=== PATIENT | male | born 1940 | race Caucasian/White ===

== ENCOUNTER 2016-12-13 11:22 | Inpatient (IN) | payer MEDICARE, OTHER, MEDICAID ==
[~2016-12-13] VITALS: Ht 187.9 cm; Wt 99.1 kg
[~2016-12-13 11:22] MED LIST: ACCOLATE10 MG PO; ACIPHEX20 MG PO; ANTIVERT/2525 M1 PO; ATIVAN IM; ATIVAN1 MG PO; CARAFATE1 G1 PO; CEFTIN250 MG; CIPRO500 MG PO; CIPROFLOXACIN500 MG PO; DARVOCET N 1001 TAB PO; EXELON13.3 MG/21 TD; FLOMAX0.4 MG PO; GEODON20 MG IM; KLOR-CON 1010 ME1 PO; KLOR-CON M1010 ME1 PO; LASIX20 MG PO; LASIX40 MG PO; LIPITOR20 MG PO; LOTRISONE 0.05%1 CRE TP; MICONAZOLE NITRATE 2% T; MOBIC7.5 MG PO; MYCOSTATIN POWD15 GM PO; MYLICON, MYLANT80 MG PO; NAMENDA-21 PO; PREVACID SOLUTA30 MG PO; PREVACID30 M1 PO; PRILOSEC20 M1 PO; PYRIDIUM200 MG PO; REGLAN10 MG PO; REMERON15 M2 PO; SELEGILINE HCL5 M1 PO; SEROQUEL50 MG PO; SERTRALINE HYDR25 MG PO; SILVADENE1% TP; SINEMET 25-1001 TA1 PO; SINEMET 25-2501 TA1 PO; SINGULAIR10 MG PO; STOOL SOFTENER100 M1 PO; STOOL SOFTENER100 M3 PO; Synthroid,Levo25 MCG PO; ULTRAM50 MG PO; WATER IM; ZITHROMAX500 MG PO; ZOCOR40 MG PO; ZOCOR80 MG PO; [UNRECOGNIZED DRUG - OTHER] PO
[2016-12-13 11:25] VITALS: BP 104/56
[2016-12-13] MEDS ORDERED: PREPARATION H 81 SUP R (12:15)
[2016-12-13] MEDS ORDERED: KLOR-CON 1010 ME1 PO (12:17)
[2016-12-13 12:18] LABS: BILIRUBIN NEGATIVE (NEGATIVE); BLOOD 3+ (NEGATIVE); CLARITY SL CLOUDY (CLEAR); COLOR YELLOW (YELLOW); GLUCOSE NEGATIVE (NEGATIVE); KETONE NEGATIVE (NEGATIVE); LEUKO ESTERASE NEGATIVE (NEGATIVE); NITRITE NEGATIVE (NEGATIVE); PH 5.5 (5.0-9.0); PROTEIN NEGATIVE (NEGATIVE); SPECIFIC GRAVITY 1.015 (1.005-1.030)
[2016-12-13] MEDS ORDERED: NAMENDA-28 PO (12:18)
[2016-12-13] MEDS ORDERED: VITAMIN D32000 UNIT PO (12:19)
[2016-12-13] MEDS ORDERED: LAC CREAM12% T (12:26)
[2016-12-13] MEDS ORDERED: [UNRECOGNIZED DRUG - OTHER] T (12:27)
[2016-12-13 12:28] LABS: EPITHELIAL CELLS 0-2; RBC 31-40 rbc/hpf (0-2); URINE REFLEX COMMENT YES (NO)
[2016-12-13 12:33] LABS: ALBUMIN 2.7 gm/dl (3.1-4.5); ALKALINE PHOSPHATASE 341 U/L (45-117); BILIRUBIN, TOTAL 0.4 mg/dl (0.2-1.0); BUN 20 mg/dl (7-24); CARBON DIOXIDE 30 mmol/L (21-32); CHLORIDE 100 mmol/L (98-107); EST GLOM FILT AFRICAN AMERICAN > 60 ml/min; GLUCOSE 92 mg/dL (65-99); POTASSIUM 4.1 mmol/L (3.5-5.1); SGOT/AST 78 IU/L (3-35); SGPT/ALT 12 U/L (12-78); SODIUM 140 mmol/L (136-145); TOTAL PROTEIN 7.1 gm/dL (6.4-8.2)
[2016-12-13 12:37] LABS: BASO % 0.3 % (0.0-1.0); EOS # 0.2 10*3/uL (0.0-0.4); EOS % 2.4 % (1.0-4.0); HEMATOCRIT 37.7 % (42.0-52.0); HEMOGLOBIN 11.6 g/dl (14.0-18.0); LYMPH # 0.6 10*3/uL (1.3-4.4); MEAN CELL VOLUME 78.1 fl (80.0-94.0); MEAN CORPUSCULAR HGB CONC 30.8 g/dl (33.0-37.0); MEAN PLATELET VOLUME 10.3 fl (9.6-12.3); MONO # 0.9 10*3/uL (0.1-1.0); MONO % 9.5 % (3.0-9.0); NEUT # 7.6 10*3/uL (2.3-7.9); NEUT % 81.4 % (47.0-73.0); PLATELET COUNT AUTOMATED 365 10*3/uL (130-400); RED BLOOD COUNT 4.83 10*6/uL (4.50-5.90); RED CELL DISTRI WIDTH 15.9 % (0-14.5); WHITE BLOOD COUNT 9.4 10*3/uL (4.8-10.8)
[2016-12-13 12:57] VITALS: BP 96/58
[2016-12-13 14:52] VITALS: BP 113/59
[2016-12-13 15:01] VITALS: BP 105/61
[2016-12-13 19:23] VITALS: BP 114/63
[2016-12-13] MEDS ORDERED: REMERON15 M2 PO (19:55)
[2016-12-14] VITALS: BP 117/59
[2016-12-14 08:00] VITALS: BP 115/54
[2016-12-14 12:00] VITALS: BP 126/54
[2016-12-14 16:00] VITALS: BP 99/60
[2016-12-14 20:00] VITALS: BP 100/60
[2016-12-15] VITALS: BP 108/56
[2016-12-15 06:08] LABS: BASO % 0.4 % (0.0-1.0); EOS # 0.4 10*3/uL (0.0-0.4); EOS % 3.4 % (1.0-4.0); HEMATOCRIT 33.8 % (42.0-52.0); HEMOGLOBIN 10.4 g/dl (14.0-18.0); LYMPH # 0.6 10*3/uL (1.3-4.4); LYMPH % 5.3 % (27.0-41.0); MEAN CELL VOLUME 78.1 fl (80.0-94.0); MEAN CORPUSCULAR HGB CONC 30.8 g/dl (33.0-37.0); MEAN PLATELET VOLUME 10.3 fl (9.6-12.3); NEUT # 8.8 10*3/uL (2.3-7.9); NEUT % 81.5 % (47.0-73.0); PLATELET COUNT AUTOMATED 319 10*3/uL (130-400); RED BLOOD COUNT 4.33 10*6/uL (4.50-5.90); RED CELL DISTRI WIDTH 15.9 % (0-14.5); WHITE BLOOD COUNT 10.7 10*3/uL (4.8-10.8)
[2016-12-15 06:38] LABS: BUN 11 mg/dl (7-24); CARBON DIOXIDE 30 mmol/L (21-32); CHLORIDE 104 mmol/L (98-107); EST GLOM FILT AFRICAN AMERICAN > 60 ml/min; GLUCOSE 71 mg/dL (65-99); POTASSIUM 3.7 mmol/L (3.5-5.1); SODIUM 143 mmol/L (136-145)
[2016-12-15 08:00] VITALS: BP 100/52
[2016-12-15] MEDS ORDERED: METRONIDAZOLE500 M1 PO (08:01)
[2016-12-15] MEDS ORDERED: VANCOMYCIN250 MG/2.5 PO (08:01)
[2016-12-15 12:00] VITALS: BP 112/50
== END 2016-12-15 13:15 | DRG 371 ==
LOC: ED 11:22 → EDHOLD 18:00 → 5E 18:00
PROVIDERS: Internal Medicine; Registered Nurse
DX: A04.7 Enterocolitis due to Clostridium difficile (principal); E43 Unspecified severe protein-calorie malnutrition; G20 Parkinson's disease; R31.0 Gross hematuria; R16.0 Hepatomegaly, not elsewhere classified; K42.9 Umbilical hernia without obstruction or gangrene; K76.9 Liver disease, unspecified; Z66 Do not resuscitate; Z51.5 Encounter for palliative care; R29.6 Repeated falls; E03.9 Hypothyroidism, unspecified; N40.0 Benign prostatic hyperplasia without lower urinary tract symptoms; K21.9 Gastro-esophageal reflux disease without esophagitis; D50.9 Iron deficiency anemia, unspecified; Z93.1 Gastrostomy status; Z79.899 Other long term (current) drug therapy; Z68.28 Body mass index [BMI] 28.0-28.9, adult

== ENCOUNTER → 2016-12-28 | Outpatient (CLI) | payer MEDICARE, OTHER, MEDICAID ==
[2016-12-28] VITALS (10 sets, daily range): BP systolic 112–151; BP diastolic 60–81
[~2016-12-28] MED LIST changes: +CLARITIN10 MG PO; +LAC CREAM12% T; +METRONIDAZOLE500 M1 PO; +NAMENDA-28 PO; +PREPARATION H 81 SUP R; +PROBIOTIC250 MG PO; +VANCOMYCIN250 MG/2.5 PO; +VITAMIN D32000 UNIT PO; +[UNRECOGNIZED DRUG - OTHER] T
[2016-12-28 10:41] LABS: INTERNATIONAL NORM RATIO 1.1 (2.0-3.5)
== END | disposition home or self-care (01) ==
PROVIDERS: Internal Medicine
DX: R16.0 Hepatomegaly, not elsewhere classified (principal); R31.9 Hematuria, unspecified; Z79.899 Other long term (current) drug therapy